=== PATIENT | female | born 2005 | race Caucasian/White ===

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

== ENCOUNTER 2024-04-05 19:51 | Emergency (ER) | payer OTHER ==
[~2024-04-05] VITALS: Ht 162.6 cm; Wt 63.0 kg
[~2024-04-05 19:51] MED LIST changes: +PENICILLIN V P500 MG PO
--- OUTSIDE RECORDS SUMMARY | 2024-04-05 19:57 | XMS ---
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 - Patient eloped before treatment completed. - Patient with suicidal and/or homicidal ideations eloped. Details: Patient LWBS CRITERIA MET - Group Notification CARE PROVIDERS -, [facility] Dentist: Technical Stenographer [facility] PHONE: [phone] -[place]- Dentist: Technical Stenographer [facility] PHONE: [phone] [facility]: [facility] Current \F\ [facility] PHONE: [phone] Michael has no Care Guidelines for this patient. Allison VISIT COUNT (12 MO.) 2 [facility] TOTAL 2 NOTE: Visits indicate total known visits. ED/UCC VISIT TRACKING (12 MO.) 04/05/2024 19:51 [facility] TYPE: Emergency COMPLAINT: - VAGINAL BLEEDING/12 WEEKS 05/06/2023 06:[address] [facility] [place] TYPE: Emergency COMPLAINT: - SORE THROAT, NAUSEA DIAGNOSES: - Acute pharyngitis, unspecified - Encounter for screening for COVID-19 - Streptococcal pharyngitis - Streptococcus, group A, as the cause of diseases classified elsewhere INPATIENT VISIT TRACKING (12 MO.) No inpatient visits to display in this time frame [email or web address]
[2024-04-05] MEDS ORDERED: LACTATED RINGER'S 1,000 ML IV ONE (20:15)
[2024-04-05 20:27] LABS: BASOPHILS 1.1 % (0-2); EOSINOPHILS 0.7 % (0-6); HEMATOCRIT 35.6 % (35.0-50.0); HEMOGLOBIN 12.4 g/dL (12.0-18.0); MCH 30.5 (27-36); MCHC 34.9 g/dl (30-36); MCV 87.5 fl (81-99); MONOCYTES 6.2 % (0-12); PLATELET COUNT 329 K/uL (140-440); RBC 4.07 M/ul (4.3-5.7); RDW 13.4 (10.5-15.0)
[2024-04-05 20:51] LABS: ABO O; RH POSITIVE
[2024-04-05 20:59] LABS: BILIRUBIN, URINE NEGATIVE (negative); BLOOD/HGB, URINE LARGE (Negative); KETONE, URINE NEGATIVE (Negative); LEUK ESTERASE, URINE NEGATIVE (negative); NITRITE, URINE POSITIVE (negative); PH, URINE 6.5 (5-7)
[2024-04-05] MEDS ORDERED: ONDANSETRON ODT8 MG PO (21:02)
[2024-04-05 21:07] LABS: ALBUMIN 3.5 g/dL (3.4-5.0); ALBUMIN/GLOBULIN RATIO 0.92 (1.1-2.4); ANION GAP 15.7 (7-21); BILIRUBIN, TOTAL 0.2 ng/dL (0.2-1.0); BUN/CREATININE RATIO 19.11 (6.0-28.6); CREATININE, SERUM 0.68 mg/dL (0.55-1.02); POTASSIUM 3.7 mmol/L (3.5-5.1); PROTEIN, TOTAL 7.3 g/dL (6.4-8.2)
[2024-04-05 21:09] LABS: RED BLOOD CELLS, URINE >50 /hpf (0-5)
[2024-04-05 21:10] LABS: BACTERIA, URINE 1+ /hpf (negative); CASTS, URINE NONE SEEN \\lpf; COLLECTION TYPE, URINE CLEAN CATCH; CRYSTALS, URINE NONE SEEN (0-1+); EPITHELIAL CELLS, URINE SQUAMOUS 1+ /lpf (0-1+); REFLEX CULTURE, URINE No (No)
[2024-04-05] MEDS ORDERED: CEPHALEXIN500 M1 PO (21:25)
[2024-04-05] MEDS ORDERED: CEPHALEXIN MONOHYDRATE 500 MG HOME.PACK PO ONE (21:30)
[2024-04-05 21:41] VITALS: BP 96/82
== END 2024-04-05 21:41 | disposition home or self-care (01) ==
LOC: ED 19:51
PROVIDERS: Internal Medicine
DX: O20.9 Hemorrhage in early pregnancy, unspecified (principal); Z3A.12 12 weeks gestation of pregnancy; Z79.899 Other long term (current) drug therapy
CPT/HCPCS: 36415; 76801; 80053; 81001; 84702; 85025; 86900; 86901; 87077; 87088; 87186; 99284-25; A9270; J7121

== ENCOUNTER 2024-09-30 02:47 | Inpatient (IN) | payer OTHER ==
[~2024-09-30] VITALS: Ht 162.6 cm; Wt 87.5 kg
[~2024-09-30 02:47] MED LIST changes: +CEPHALEXIN500 M1 PO; +ONDANSETRON ODT8 MG PO
[2024-09-30 03:26] LABS: HEMATOCRIT 33.5 % (35.0-50.0); HEMOGLOBIN 11.4 g/dL (12.0-18.0); MCH 29.3 (27-36); MCHC 34.2 g/dl (30-36); MCV 85.7 fl (81-99); RBC 3.91 M/ul (4.3-5.7); RDW 14.6 (10.5-15.0)
[2024-09-30] MEDS ORDERED: OXYTOCIN/0.9 % SODIUM CHLORIDE 30 UNITS/500 ML BAG IV SCH ×2 (03:30→20:45)
[2024-09-30] MEDS ORDERED: LACTATED RINGER'S 1,000 ML IV SCH (03:30)
[2024-09-30] MEDS ORDERED: PENICILLIN G POTASSIUM 5 MUNITS in SODIUM CHLORIDE 0.9% 100 ML IV ONE (03:30)
[2024-09-30] MEDS ORDERED: LACTATED RINGER'S 1,000 ML IV PRN (03:30)
[2024-09-30] MEDS ORDERED: MAGNESIUM HYDROXIDE/AL HYDROX 30 ML CUP PO PRN ×2 (03:30→21:15)
[2024-09-30] MEDS ORDERED: CALCIUM CARBONATE 500 MG CHEW PO PRN ×2 (03:30→21:15)
[2024-09-30 03:40] LABS: AMPHETAMINES, URINE NEGATIVE (NEGATIVE); BARBITURATES, URINE NEGATIVE (NEGATIVE); BENZODIAZEPINE, URINE NEGATIVE (NEGATIVE); BUPRENORPHINE, URINE NEGATIVE (NEGATIVE); CANNABINOID, URINE POSITIVE (NEGATIVE); COCAINE, URINE NEGATIVE (NEGATIVE); ECSTASY, URINE NEGATIVE (NEGATIVE); FENTANYL, URINE NEGATIVE (NEGATIVE); METHADONE, URINE NEGATIVE (NEGATIVE); OPIATES, URINE NEGATIVE (NEGATIVE); OXYCODONE, URINE NEGATIVE (NEGATIVE); PHENCYCLIDINE, URINE NEGATIVE (NEGATIVE)
[2024-09-30 03:42] VITALS: BP 123/78
[2024-09-30 03:58] LABS: ABO O; ANTIBODY SCREEN NEGATIVE; RH POSITIVE
[2024-09-30] MEDS ORDERED: OXYTOCIN/0.9 % SODIUM CHLORIDE 500 ML IV SCH ×2 (06:15→21:15)
[2024-09-30] MEDS ORDERED: PENICILLIN G POTASSIUM 2.5 MUNITS in DEXTROSE 5% 100 ML IV SCH (08:00)
[2024-09-30] MEDS ORDERED: fentaNYL citrate 100 MCG/2 ML VIAL ONE (08:56)
[2024-09-30] MEDS ORDERED: ePHEDrine sulfate 5 MG/ML SYRINGE IV PRN (09:00)
[2024-09-30] MEDS ORDERED: ROPIVACAINE 0.2% 200 ML BAG EPIDURAL SCH (09:00)
[2024-09-30] MEDS ORDERED: LACTATED RINGER'S 2,000 ML IV ONE (09:00)
[2024-09-30] MEDS ORDERED: LACTATED RINGER'S 500 ML IV PRN (09:00)
[2024-09-30] MEDS ORDERED: ondansetron HCL 4 MG/2 ML VIAL IV PRN (11:15)
[2024-09-30] MEDS ORDERED: TRANEXAMIC ACID IN NACL,ISO-OS 0 ML IV ONE (20:51)
[2024-09-30] MEDS ORDERED: IBUPROFEN 600 MG TAB PO PRN (21:15)
[2024-09-30] MEDS ORDERED: BENZOCAINE 60 ML AEROSOL TOP PRN (21:15)
[2024-09-30] MEDS ORDERED: MAGNESIUM HYDROXIDE 30 ML UDC PO PRN (21:15)
[2024-09-30] MEDS ORDERED: ACETAMINOPHEN 325 MG TAB PO PRN (21:15)
[2024-09-30] MEDS ORDERED: WITCH HAZEL/GLYCERIN 1 EA PAD TOP PRN (21:15)
[2024-09-30] MEDS ORDERED: HYDROCORTISONE ACETATE 25 MG SUPP PR PRN (21:15)
[2024-09-30] MEDS ORDERED: LIDOCAINE 2% VISCOUS 6 ML SYR TOP ONE ×2 (21:15)
[2024-10-01] MEDS ORDERED: SENNOSIDES/DOCUSATE 1 EA TAB PO SCH (09:00)
== END 2024-10-01 22:15 | disposition home or self-care (01) | DRG 807 ==
LOC: FBCO 02:47 → FBC 03:05
PROVIDERS: ADMIT Obstetrics & Gynecology; ATTEND Obstetrics & Gynecology
PROC: 10E0XZZ Delivery of Products of Conception, External Approach (ICD-10-PCS; principal; 2024-09-30)
PROC: 4A1HXCZ Monitoring of Products of Conception, Cardiac Rate, External Approach (ICD-10-PCS; 2024-09-30)
DX: O99.824 Streptococcus B carrier state complicating childbirth (principal); Z37.0 Single live birth; Z3A.37 37 weeks gestation of pregnancy
CPT/HCPCS: 36415; 80307; 85027; 86850; 86900; 86901; A9270; J2405; J2540; J3010; J7121

== ENCOUNTER 2024-11-19 13:05 | Emergency (ER) | payer OTHER ==
[~2024-11-19] VITALS: Ht 152.4 cm; Wt 78.3 kg
--- OUTSIDE RECORDS SUMMARY | 2024-11-19 13:12 | XMS ---
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 E.D. VISIT COUNT (12 MO.) 3 [facility] TOTAL 3 NOTE: Visits indicate total known visits. ED/UCC VISIT TRACKING (12 MO.) 11/19/2024 13:06 [facility] TYPE: Emergency COMPLAINT: - SHORTNESS OF BREATH 08/30/2024 10:21 [facility] TYPE: Emergency COMPLAINT: - DENTAL PAIN 04/05/2024 19:51 [facility] TYPE: Emergency COMPLAINT: - VAGINAL BLEEDING/12 WEEKS DIAGNOSES: - 12 weeks gestation of - Abnormal uterine and vaginal bleeding, unspecified - Hemorrhage in early , unspecified - Other retirement (current) drug therapy INPATIENT VISIT TRACKING (12 MO.) 09/30/2024 03:05 [facility] TYPE: [facility] COMPLAINT: - LABOR DIAGNOSES: - 37 weeks gestation of - Single live - Streptococcus B carrier state complicating childbirth [email or web address]
[2024-11-19] MEDS ORDERED: ALBUTEROL/IPRATROPIUM 3 ML NEB INH PRN (13:30)
[2024-11-19 13:40] LABS: BASOPHILS 0.4 % (0.1-1.2); EOSINOPHILS 2.0 % (0.7-5.8); LYMPHOCYTES 9.2 % (19.3-51.7); MCH 28.6 PG (25.6-32.2); MCHC 32.8 g/dL (32.2-35.5); MCV 87.1 fL (79.4-94.8); MONOCYTES 7.0 % (4.7-12.5); NEUTROPHILS 81.1 % (34.0-71.1); RBC 4.58 M/uL (3.93-5.22)
[2024-11-19 13:59] LABS: ALT (SGPT) 21.0 U/L (14-59); AST (SGOT) 12.0 U/L (15-37); GLOMERULAR FILTRATION RATE,EST 103.0 mL/min (>60); PROTEIN, TOTAL 8.0 g/dL (6.4-8.2); UREA NITROGEN 10.0 mg/dL (7-18)
[2024-11-19] MEDS ORDERED: ZITHROMAX250 MG PO (15:16)
[2024-11-19 15:24] VITALS: BP 110/74
--- NOTE | 2024-11-19 22:15 | EKG ---
[facility] [address] [place] [address] Signed Sinus tachycardia Otherwise normal ECG When compared with ECG of 26-SEP-2020 12:51, No significant change was found Confirmed by Oliver Gibbs MD () on 11/19/2024 10:15:02 PM Electronically Signed By: OLIVER GIBBS MD 11/19/24 2215 PATIENT NAME: EULALIA LOOBEBETO LINDOE Electrocardiogram DATE OF : 04 PHYSICIAN: OLIVER GIBBS MD REPORT #: [id number] REPORT IS CONFIDENTIAL AND NOT TO BE RELEASED WITHOUT AUTHORIZATION
== END 2024-11-19 15:24 | disposition home or self-care (01) ==
LOC: ED 13:05
PROVIDERS: Emergency Medicine
DX: R06.02 Shortness of breath (principal)
CPT/HCPCS: 36415; 71045; 80053; 83735; 84484; 84703; 85025; 85379; 93005; 93010; 94640; 99285-25